=== PATIENT | female | born 1985 | race African-American/Black ===

== ENCOUNTER 2017-10-18 00:59 | Emergency (ER) | payer SELFPAY ==
[~2017-10-18] VITALS: Ht 162.6 cm; Wt 76.0 kg
[2017-10-18 03:00] VITALS: BP 121/79
[2017-10-18] MEDS ORDERED: IBUPROFEN 600MG TABLET PO ONE (04:15)
== END 2017-10-18 05:10 | disposition home or self-care (01) ==
LOC: ER 00:59
DX: M25.571 Pain in right ankle and joints of right foot (principal); F17.200 Nicotine dependence, unspecified, uncomplicated; F12.10 Cannabis abuse, uncomplicated
CPT/HCPCS: 73610; 99284; Z7610; 29505; 99283